=== PATIENT | female | born 1985 | race Caucasian/White ===

== ENCOUNTER 2016-05-26 09:25 | Emergency (ER) | payer MEDICAID ==
[~2016-05-26] VITALS: Ht 172.7 cm; Wt 86.4 kg
[2016-05-26 11:18] VITALS: BP 118/77
== END 2016-05-26 11:26 | disposition home or self-care (01) ==
LOC: EMS 09:27
DX: S83.91XA Sprain of unspecified site of right knee, initial encounter (principal); W51.XXXA Accidental striking against or bumped into by another person, initial encounter; Y93.89 Activity, other specified; Y92.29 Other specified public building as the place of occurrence of the external cause; Y99.8 Other external cause status; Z88.8 Allergy status to other drugs, medicaments and biological substances; Z88.6 Allergy status to analgesic agent
CPT/HCPCS: 29505; 99283